=== PATIENT | female | born 1975 | race African-American/Black ===

== ENCOUNTER 2016-11-25 21:31 | Emergency (ER) | payer MEDICARE, OTHER ==
[~2016-11-25] VITALS: Ht 165.1 cm; Wt 190.4 kg
[~2016-11-25 21:31] MED LIST: ALBU0.086 NEB; ALBU1AER INH; AMIT50 PO; ASPI81CH37 CHEW; CETI10 PO; CHOL1CAP6 PO; FERR310S PO; FLUO10CA5 PO; FLUT1INH; FLUT1SPR9; FURO20 PO; HYDR50TA94 PO; IBUP600 PO; KCL20 PO; RANI150T PO; VITA-83 PO
[2016-11-25 21:38] VITALS: BP 150/91; PULSE 113; RESP 20; TEMP 99.9; O2SAT 100
[2016-11-25] MEDS ORDERED: SODIUM CHLORIDE 0.9% FLUSH 5 ML FLUSH IVF PRN (21:45)
[2016-11-25] MEDS ORDERED: FURO20TA PO (21:51)
[2016-11-25] MEDS ORDERED: ALBUAER3 INH (21:51)
[2016-11-25] MEDS ORDERED: AMIT50TA3 PO (21:51)
[2016-11-25] MEDS ORDERED: POTA-163 PO (21:51)
[2016-11-25] MEDS ORDERED: FLUT1INH INH (21:51)
[2016-11-25] MEDS ORDERED: VITA250T3 PO (21:51)
[2016-11-25] MEDS ORDERED: RANI150C PO (21:51)
[2016-11-25] MEDS ORDERED: ALBU0.08 NEB (21:51)
[2016-11-25] MEDS ORDERED: HYDR50TA94 PO (21:51)
[2016-11-25] MEDS ORDERED: BETA0.052 TOPICAL (22:00)
[2016-11-25] MEDS ORDERED: CETI10 PO (22:00)
[2016-11-25] MEDS ORDERED: VITA100064 PO (22:00)
[2016-11-25] MEDS ORDERED: IBUP-232 PO (22:00)
[2016-11-25] MEDS ORDERED: FLUT50SP EACH NARE (22:00)
[2016-11-25] MEDS ORDERED: DESO0.0560 TOPICAL (22:00)
[2016-11-25] MEDS ORDERED: POLY99.0 EACH EYE (22:00)
[2016-11-25] MEDS ORDERED: PATA0.2S EACH EYE (22:00)
[2016-11-25] MEDS ORDERED: KETOC2%T TOPICAL (22:00)
[2016-11-25] MEDS ORDERED: LATA0.002 EACH EYE (22:00)
--- NOTE | 2016-11-25 22:01 | RADRPT ---
EXAM DATE/TIME: 11/25/2016 21:56 [facility] COMPARISON: CHEST SINGLE AP, June 04, 2016, 15:29. INDICATIONS : Shortness of breath. MEDICAL HISTORY : None. SURGICAL HISTORY : None. ENCOUNTER: Initial ACUITY: 1 day PAIN SCORE: 0/10 LOCATION: Bilateral chest FINDINGS: A single view of the chest demonstrates the lungs to be symmetrically aerated without evidence of mas s, infiltrate or effusion. The cardiomediastinal contours are unremarkable. Osseous structures are intact. CONCLUSION: No acute disease. Zeferino Carrasco MD on November 25, 2016 at 22:00 Board Certified Radiologist. This report was verified electronically.
--- NOTE | 2016-11-25 22:05 | PD ---
HPI Chief Complaint: Respiratory Symptoms Time Seen by Provider: 21:32 Travel History International Travel<30 days: No Contact w/Intl Traveler<30days: No Traveled to known affect area: No History of Present Illness HPI Patient is 41 years old. She arrives to the ER complaining of a burning sensation in her chest after she walked into her apartment. She also started shortness of breath at the time. For the last few days she has had chills. Productive cough is reported as well. She experiences burning the sternum on occasion and she attributes it to black and white mold exposure in her apartment. Patient suffers with asthma and sleep apnea. She tried a nebulizer at home which helped minimally. Patient saw her primary care provider for essentially the same complaint 3 days prior and was given a prescription to have blood work performed however was unable to complete the blood work. PFSH Past Medical History Anemia: Yes Asthma: Yes Heart Rhythm Problems: No Cardiac Catheterization: No Cardiovascular Problems: Yes (Chest Pain) High Cholesterol: No Congestive Heart Failure: No Diabetes: No Deep Vein Thrombosis: Yes Respiratory: Yes (sleep ) Sleep Apnea: Yes (CPAP @ NIGHT) : 0 Past Surgical History Coronary Artery Bypass Graft: No Social History Alcohol Use: No Tobacco Use: No Substance Use: No Allergies-Medications (Allergen,Severity, Reaction): Coded Allergies: No Known Allergies (Verified , 11/25/16) Reported Meds & Prescriptions Reported Meds & Active Scripts Active Cetirizine (Cetirizine HCl) 10 Mg Tab 10 Mg PO DAILY Aspirin Low Dose (Aspirin) 81 Mg Chew 81 Mg CHEW DAILY Fluoxetine (Fluoxetine HCl) 10 Mg Cap 10 Mg PO DAILY Reported Pataday Opth Drops (Olopatadine HCl) 0.2 % Drops 1 Drop EACH EYE DAILY Cetirizine (Cetirizine HCl) 10 Mg Tab 10 Mg PO DAILY Fluticasone Nasal [place] 50 Mcg/Act Naspr 50 Mcg EACH NARE DAILY 50 mcg/spray Artificial Tears Opth Drops (Polyvinyl Alcohol) 1.4% Soln 1-2 Drop EACH EYE PRN PRN Nizoral Topical Shampoo (Ketoconazole) 2% Sham 1 Applic TOPICAL DAILY Apply to scalp Ibuprofen 600 Mg Tab 600 Mg PO BID PRN Vitamin D (Cholecalciferol) 1,000 Unit Tab 1,000 Units PO DAILY Latanoprost Opth Drops (Latanoprost) 0.005% Drops 1 Drop EACH EYE HS Refrigerate until opened. Betamethasone Dipropionate Topical 0.05% Cream 1 Applic TOPICAL BID Desonide Topical (Desonide) 0.05% Cream 1 Applic TOPICAL BID Furosemide 20 Mg Tab 20 Mg PO BID Potassium Chloride ER (Potassium Chloride) 20 Meq Tab 20 Meq PO BID Hydroxyzine HCl 50 Mg Tab 50 Mg PO HS Amitriptyline (Amitriptyline HCl) 50 Mg Tab 50 Mg PO HS Ranitidine (Ranitidine HCl) 150 Mg Cap 150 Mg PO BID Breo Ellipta Inh (Fluticasone/Vilanterol) 100-25 Mcg/Act Inh 1 Puff INH DAILY Use daily at the same time. Vitamin C (Ascorbic Acid) 250 Mg Tab 250 Mg PO DAILY Albuterol Neb (Albuterol Sulfate) 2.5 Mg/3 Ml Neb 2.5 Mg NEB TID NEB PRN Proair Hfa 8.5 GM Inh (Albuterol Sulfate) 90 Mcg/Act Aer 2 Puff INH Q6H PRN 108 mcg/actuation Review of Systems Except as stated in HPI: all other systems reviewed are Neg Physical Exam Narrative GENERAL: 41-year-old female pleasant, mild distress SKIN: Warm and dry. HEAD: Atraumatic. Normocephalic. EYES: Pupils equal and round. No scleral icterus. No injection or drainage. ENT: No nasal bleeding or discharge. Mucous membranes pink and moist. NECK: Trachea midline. No JVD. CARDIOVASCULAR: Regular rhythm. Tachycardia. RESPIRATORY: No accessory muscle use. Clear to auscultation. Breath sounds equal bilaterally. GASTROINTESTINAL: Abdomen soft, non-tender, nondistended. Hepatic and splenic margins not palpable. MUSCULOSKELETAL: No obvious deformities. No clubbing. No cyanosis. No edema. NEUROLOGICAL: Awake and alert. No obvious cranial nerve deficits. Motor grossly within normal limits. Normal speech. PSYCHIATRIC: Appropriate mood and affect; insight and judgment normal. Data Data Last Documented VS Vital Signs Date Time Temp Pulse Resp B/P Pulse Ox O2 Delivery O2 Flow Rate FiO2 11/26/16 01:08 103 18 134/76 100 Room Air 11/25/16 21:38 99.9 Vital signs reviewed Orders Electrocardiogram (11/25/16 21:41) Complete Blood Count With Diff (11/25/16 21:41) Chest, Single Ap (11/25/16 21:41) Ecg Monitoring (11/25/16 21:41) Iv Access Insert/Monitor (11/25/16 21:41) Oximetry (11/25/16 21:41) Sodium Chloride 0.9% Flush (Ns Flush) (11/25/16 21:45) Blood Culture (11/25/16 21:41) Labs Laboratory Tests Test 11/26/16 00:25 White Blood Count 6.3 TH/MM3 Red Blood Count 4.32 MIL/MM3 Hemoglobin 11.7 GM/DL Hematocrit 37.4 % Mean Corpuscular Volume 86.6 FL Mean Corpuscular Hemoglobin 27.0 PG Mean Corpuscular Hemoglobin 31.2 % Concent Red Cell Distribution Width 15.6 % Platelet Count 164 TH/MM3 Mean Platelet Volume 9.7 FL Neutrophils (%) (Auto) 62.3 % Lymphocytes (%) (Auto) 30.4 % Monocytes (%) (Auto) 4.9 % Eosinophils (%) (Auto) 1.6 % Basophils (%) (Auto) 0.8 % Neutrophils # (Auto) 3.9 TH/MM3 Lymphocytes # (Auto) 1.9 TH/MM3 Monocytes # (Auto) 0.3 TH/MM3 Eosinophils # (Auto) 0.1 TH/MM3 Basophils # (Auto) 0.1 TH/MM3 CBC Comment DIFF FINAL Differential Comment MDM Medical Decision Making Medical Screen Exam Complete: No Emergency Medical Condition: No Medical Record Reviewed: No Differential Diagnosis NSTEMI, unstable angina, coronary vasospasm, PE, PTX, aortic dissection, pericarditis, myocarditis, endocarditis, PNA, esophageal disease, aneurysm, musculoskeletal etiologies, anxiety, cocaine/sympathomimetic abuse Narrative Course EKG: Sinus rate [address] changes, normal axis/intervals Of note the patient is somewhat tachycardic. Upon review of her vital signs trended over the past 5 years patient tends to run tachycardic quite often with a heart rate over 100. For 3 hours patient has remained here and in no distress with a heart rate that has descended to about 105 on average. Chest x- ray is normal as is the EKG. Patient will be discharged home. Diagnosis Primary Impression: Chest pain, atypical Additional Impressions: Morbid obesity with BMI of 60.0-69.9, adult Dyspnea Qualified Code: R06.00 - Dyspnea, unspecified type Referrals: Primary Care Physician 2 days Additional Instructions: You have a choice when it comes to health care, and we are glad that you chose [facility]. Hopefully, we have met your expectations on today's visit. You are welcome to return to [facility] at any time, as we are committed to meeting the health care needs of our community. Med/Other Pt SpecificInfo: No Change to Meds Disposition: 01 DISCHARGE HOME Condition: Stable Javon Espinoza MD Nov 25, 2016 22:05 Javon Espinoza MD Nov 25, 2016 22:05
[2016-11-26 00:38] LABS: AUTOMATED NEUTROPHIL # 3.9 TH/MM3 (1.8-7.7); BASOPHIL # 0.1 TH/MM3 (0-0.2); BASOPHIL % 0.8 % (0.0-2.0); EOSINOPHIL # 0.1 TH/MM3 (0-0.4); EOSINOPHIL % 1.6 % (0.0-4.0); HEMATOCRIT 37.4 % (35.0-46.0); HEMO FLAGS DIFF FINAL; LYMPH % 30.4 % (9.0-44.0); LYMPHOCYTE # 1.9 TH/MM3 (1.0-4.8); MEAN CELL VOLUME 86.6 FL (80.0-100.0); MEAN CORPUSCULAR HGB CONC 31.2 % (32.0-36.0); MONO % 4.9 % (0.0-8.0); NEUT % 62.3 % (16.0-70.0); PLATELET COUNT 164 TH/MM3 (150-450); RED BLOOD COUNT 4.32 MIL/MM3 (4.00-5.30); RED CELL DISTRIBUTION WIDTH 15.6 % (11.6-17.2); WHITE BLOOD COUNT 6.3 TH/MM3 (4.0-11.0)
[2016-11-26 01:08] VITALS: BP 134/76; PULSE 103; RESP 18; O2SAT 100
--- NOTE | 2016-11-26 17:19 | EKG ---
Date Performed: 11/25/2016 Time Performed: 22:20:32 PTAGE: 41 years EKG: SINUS TACHYCARDIA NONSPECIFIC T-WAVE ABNORMALITY Compared to prior tracing no significant c hange ABNORMAL RHYTHM ECG PREVIOUS TRACING : 06/04/2016 21.42 DOCTOR: Diane Burr Interpretating Date/Time 11/26/2016 17:17:20
[2016-12-25] MEDS ORDERED: [UNRECOGNIZED DRUG - SUPPLY] (12:22)
[2016-12-25] MEDS ORDERED: FLUT1INH INH (22:39)
== END 2016-11-26 01:25 | disposition home or self-care (01) ==
LOC: NEPC 21:31
DX: R07.89 Other chest pain (principal); R06.02 Shortness of breath; R05 Cough; E66.01 Morbid (severe) obesity due to excess calories; Z68.44 Body mass index [BMI] 60.0-69.9, adult
CPT/HCPCS: 71010; 85025; 93005

== ENCOUNTER → 2016-12-20 | Outpatient (CLI) | payer MEDICARE, OTHER ==
[~2016-12-20] MED LIST changes: +ALBU0.08 NEB; -ALBU0.086 NEB; -ALBU1AER INH; +ALBUAER3 INH; -AMIT50 PO; +AMIT50TA3 PO; +BETA0.052 TOPICAL; -CHOL1CAP6 PO; +DESO0.0560 TOPICAL; -FERR310S PO; -FLUT1INH; +FLUT1INH INH; -FLUT1SPR9; +FLUT50SP EACH NARE; -FURO20 PO; +FURO20TA PO; +IBUP-232 PO; -IBUP600 PO; -KCL20 PO; +KETOC2%T TOPICAL; +LATA0.002 EACH EYE; +MEDR4PAK PO; +PATA0.2S EACH EYE; +POLY99.0 EACH EYE; +POTA-163 PO; +RANI150C PO; -RANI150T PO; -VITA-83 PO; +VITA100064 PO; +VITA250T3 PO; +[UNRECOGNIZED DRUG - SUPPLY]
[2016-12-20 11:05] LABS: AUTOMATED NEUTROPHIL # 2.9 TH/MM3 (1.8-7.7); BASOPHIL # 0.1 TH/MM3 (0-0.2); BASOPHIL % 1.1 % (0.0-2.0); EOSINOPHIL # 0.1 TH/MM3 (0-0.4); EOSINOPHIL % 1.4 % (0.0-4.0); HEMATOCRIT 34.6 % (35.0-46.0); HEMO FLAGS DIFF FINAL; LYMPH % 36.5 % (9.0-44.0); LYMPHOCYTE # 1.9 TH/MM3 (1.0-4.8); MEAN CELL VOLUME 80.9 FL (80.0-100.0); MEAN CORPUSCULAR HEMOGLOBIN 26.9 PG (27.0-34.0); MEAN CORPUSCULAR HGB CONC 33.2 % (32.0-36.0); MONO % 6.2 % (0.0-8.0); NEUT % 54.8 % (16.0-70.0); PLATELET COUNT 234 TH/MM3 (150-450); RED BLOOD COUNT 4.28 MIL/MM3 (4.00-5.30); WHITE BLOOD COUNT 5.3 TH/MM3 (4.0-11.0)
[2016-12-20 11:30] LABS: ALT (GPT) 20 U/L (10-53); ANION GAP 8 MEQ/L (5-15); AST (GOT) 13 U/L (15-37); BICARBONATE 27.8 MEQ/L (21.0-32.0); BLOOD UREA NITROGEN 14 MG/DL (7-18); CHLORIDE 103 MEQ/L (98-107); GLOMERULAR FILTRATION RATE 104 ML/MIN (>89); GLUCOSE,FASTING 88 MG/DL (74-99); POTASSIUM 3.8 MEQ/L (3.5-5.1); SODIUM (NA) 139 MEQ/L (136-145)
[2016-12-20 11:31] LABS: ALKALINE PHOSPHATASE 61 U/L (45-117); TOTAL BILIRUBIN ADULT 0.6 MG/DL (0.2-1.0)
== END ==
LOC: CLAB 10:22
PROVIDERS: ATTEND Family Medicine
DX: R06.02 Shortness of breath (principal); Z77.120 Contact with and (suspected) exposure to mold (toxic)
CPT/HCPCS: 36415; 80053; 85025

== ENCOUNTER → 2017-01-08 | Outpatient (CLI) | payer MEDICARE, OTHER | LOC: CLAB 10:18 | DX: R53.83 Other fatigue (principal); R06.02 Shortness of breath; Z77.120 Contact with and (suspected) exposure to mold (toxic) | CPT/HCPCS: 36415; 83880; 84443; 87102; 87206 ==

== ENCOUNTER → 2017-01-17 | Outpatient (CLI) | payer MEDICARE, OTHER ==
--- NOTE | 2017-01-19 12:39 | EC ---
Study Study Date:01/17/2017 STUDY CONCLUSIONS SUMMARY LEFT VENTRICLE: The cavity size was normal. Wall thickness was normal. Systolic function was normal. The estimated ejection fraction was in the range of 55% to 60%. Wall motion was normal; there were no regional wall motion abnormalities. If LV function is below 40, please consider prescribing an ACEI or ARB or document rationale for non-use. PROCEDURE DATA STUDY STATUS: Elective. Procedure: Transthoracic echocardiography. Image quality was suboptimal. Scanning was performed from the parasternal, apical, and subcostal acoustic windows. Study completion: The patient tolerated the procedure well. Transthoracic echocardiography. M-mode, complete 2D, complete spectral Doppler, and color Doppler. Height: Height: 65in. Weight: Weight: 418.1lb. Body mass index: BMI: 69.7kg/m^2. Body surface area: BSA: 2.71m^2. Patient status: Inpatient. CARDIAC ANATOMY LEFT VENTRICLE: The cavity size was normal. Wall thickness was normal. Systolic function was normal. The estimated ejection fraction was in the range of 55% to 60%. Wall motion was normal; there were no regional wall motion abnormalities. AORTIC VALVE: Not well visualized. Normal thickness leaflets. Doppler: Transvalvular velocity was within the normal range. There was no stenosis. No regurgitation. AORTA: Aortic root: The aortic root was normal in size. MITRAL VALVE: Structurally normal valve. Doppler: Transvalvular velocity was within the normal range. There was no evidence for stenosis. No regurgitation. LEFT ATRIUM: The atrium was normal in size. RIGHT VENTRICLE: Poorly visualized. The cavity size was normal. Wall thickness was normal. PULMONIC VALVE: Poorly visualized. Doppler: Transvalvular velocity was within the normal range. There was no evidence for stenosis. Trace regurgitation. TRICUSPID VALVE: Poorly visualized. Doppler: Transvalvular velocity was within the normal range. No regurgitation. PULMONARY ARTERY: The main pulmonary artery was normal-sized. RIGHT ATRIUM: Poorly visualized. The atrium was normal in size. PERICARDIUM: There was no pericardial effusion. Patient weight: 418.1lb _Ejection fraction:_ 65-75% _Fractional shortening:_ 32% up to 5Kg 5-11.5Kg 11.6-22.9Kg 23-45Kg 45-57Kg Aortic Root 7-13 <17 13-22 17-27 17-27 LA diam 6-13 <23 24-38 33-47 37-40 RVID 10-17 7-15 7-15 7-18 8-17 LVIDd 12-22 <32 24-38 33-47 37-40 LVPW 2-4 3-6 5-7 6-8 7-8 IVS 2-4 3-6 5-7 6-8 7-8 BASIC MEASUREMENTS ADULT NORMAL Left ventricle LV internal dimension, ED, chordal level, 46.1 mm 43-52 PLAX LV internal dimension, ES, chordal level, 30 mm 23-38 PLAX Fractional shortening, chordal level, PLAX 35 % >29 LV posterior wall thickness, ED 7.32 mm IVS/LVPW ratio, ED 1.01 <1.3 Ventricular septum Septal thickness, ED 7.38 mm Aortic valve Leaflet separation 19 mm 15-26 Aorta Root diameter, ED 29 mm Left atrium Anterior-posterior dimension 22 mm Anterior-posterior dimension index 0.81 cm/m^2 <2.2 BASIC MEASUREMENTS ADULT NORMAL Aortic valve Leaflet separation 19 mm 15-26 DOPPLER MEASUREMENTS ADULT NORMAL Pulmonic valve Peak velocity, S 56.4 cm/s LEGEND: Mean values are shown as u=mean value. Asterisk (*) whitt values outside specified normal range. Prepared and signed by Rehan Izaguirre [id number]
== END ==
LOC: HECH 11:00
PROVIDERS: ATTEND Obstetrics & Gynecology
DX: R06.02 Shortness of breath (principal)
CPT/HCPCS: 93306

== ENCOUNTER 2017-02-18 07:48 | Emergency (ER) | payer MEDICARE, OTHER ==
[~2017-02-18] VITALS: Ht 165.1 cm; Wt 190.0 kg
[~2017-02-18 07:48] MED LIST changes: -MEDR4PAK PO
[2017-02-18 07:50] VITALS: BP 140/71; PULSE 116; RESP 24; TEMP 98.4; O2SAT 97
--- NOTE | 2017-02-18 08:26 | PD ---
HPI Chief Complaint: Chest Pain Time Seen by Provider: 08:05 Travel History International Travel<30 days: No Contact w/Intl Traveler<30days: No Traveled to known affect area: No History of Present Illness HPI So 41 year-old woman who presents to the emergency department complaining of cough, painful swallowing, chest tightness, and low-grade fever up to 101.8. Symptoms started yesterday. She also had some loose watery diarrhea, 4-5 times the past 24 hours. She complains of chest pain and tightness. She is a history of morbid obesity, menorrhagia and iron deficiency anemia, provoked DVT PE, asthma, and sleep apnea. She had multiple visits to the ED and chest pain Center for atypical chest pain. She had a normal echo in January of this year. She states prior to this she was otherwise feeling well. History Past Medical History Narrative Medical Morbid obesity Menorrhagia, fibroids, history of iron deficiency anemia Obesity History of provoked DVT, PE Asthma Hypothyroidism Sleep apnea LMP: 02/11/17 : 0 Past Surgical History Surgical History: No Previous Surgery Social History Alcohol Use: No Tobacco Use: No Allergies-Medications (Allergen,Severity, Reaction): Coded Allergies: No Known Allergies (Verified , 02/18/17) Reported Meds & Prescriptions Reported Meds & Active Scripts Active Breo Ellipta Inh (Fluticasone/Vilanterol) 100-25 Mcg/Act Inh 1 Puff INH DAILY Use daily at the same time. [dehumidifier] Please use all the time and empty it everyday. Cetirizine (Cetirizine HCl) 10 Mg Tab 10 Mg PO DAILY Aspirin Low Dose (Aspirin) 81 Mg Chew 81 Mg CHEW DAILY Fluoxetine (Fluoxetine HCl) 10 Mg Cap 10 Mg PO DAILY Reported Pataday Opth Drops (Olopatadine HCl) 0.2 % Drops 1 Drop EACH EYE DAILY Cetirizine (Cetirizine HCl) 10 Mg Tab 10 Mg PO DAILY Fluticasone Nasal [place] 50 Mcg/Act Naspr 50 Mcg EACH NARE DAILY 50 mcg/spray Artificial Tears Opth Drops (Polyvinyl Alcohol) 1.4% Soln 1-2 Drop EACH EYE PRN PRN Nizoral Topical Shampoo (Ketoconazole) 2% Sham 1 Applic TOPICAL DAILY Apply to scalp Ibuprofen 600 Mg Tab 600 Mg PO BID PRN Vitamin D (Cholecalciferol) 1,000 Unit Tab 1,000 Units PO DAILY Latanoprost Opth Drops (Latanoprost) 0.005% Drops 1 Drop EACH EYE HS Refrigerate until opened. Betamethasone Dipropionate Topical 0.05% Cream 1 Applic TOPICAL BID Desonide Topical (Desonide) 0.05% Cream 1 Applic TOPICAL BID Furosemide 20 Mg Tab 20 Mg PO BID Potassium Chloride ER (Potassium Chloride) 20 Meq Tab 20 Meq PO BID Hydroxyzine HCl 50 Mg Tab 50 Mg PO HS Amitriptyline (Amitriptyline HCl) 50 Mg Tab 50 Mg PO HS Ranitidine (Ranitidine HCl) 150 Mg Cap 150 Mg PO BID Breo Ellipta Inh (Fluticasone/Vilanterol) 100-25 Mcg/Act Inh 1 Puff INH DAILY Use daily at the same time. Vitamin C (Ascorbic Acid) 250 Mg Tab 250 Mg PO DAILY Albuterol Neb (Albuterol Sulfate) 2.5 Mg/3 Ml Neb 2.5 Mg NEB TID NEB PRN Proair Hfa 8.5 GM Inh (Albuterol Sulfate) 90 Mcg/Act Aer 2 Puff INH Q6H PRN 108 mcg/actuation Review of Systems Except as stated in HPI: all other systems reviewed are Neg Physical Exam Narrative GENERAL: Obese 41 year-old woman, no acute distress. SKIN: Focused skin assessment warm/dry. HEAD: Atraumatic. Normocephalic. EYES: Pupils equal and round. No scleral icterus. No injection or drainage. ENT: No nasal bleeding or discharge. Mucous membranes pink and moist. TMs are normal. Limited view the oral pharynx several see any obvious tonsillar hypertrophy or pharyngeal injection. NECK: Trachea midline. No JVD. No appreciable cervical adenopathy. CARDIOVASCULAR: Heart rates over rapid. No murmurs. RESPIRATORY: No respiratory distress. No wheezing. Lungs are clear to auscultation. GASTROINTESTINAL: Abdomen soft, non-tender, nondistended. Hepatic and splenic margins not palpable. MUSCULOSKELETAL: No obvious deformities. Legs are obese but no appreciable pitting edema. NEUROLOGICAL: Awake and alert. No obvious cranial nerve deficits. Motor grossly within normal limits. Normal speech. Data Data Last Documented VS Vital Signs Date Time Temp Pulse Resp B/P Pulse Ox O2 Delivery O2 Flow Rate FiO2 02/18/17 08:30 98 21 02/18/17 08:02 87 18 Room Air 02/18/17 07:50 98.4 140/71 Orders Electrocardiogram (02/18/17 ) Chest, Single Ap (02/18/17 ) Ketorolac Inj (Toradol Inj) (02/18/17 08:30) Albuterol Neb (Albuterol Neb) (02/18/17 08:30) MDM Medical Decision Making Medical Screen Exam Complete: Yes Emergency Medical Condition: Yes Interpretation(s) My review of EKG: Sinus tachycardia rate of 1:15, normal axis, normal intervals , nonspecific inferolateral T-wave flattening inversions. Compared to previous EKG from November 25, 2016, no significant change. Chest x-ray: No acute cardiopulmonary disease. Differential Diagnosis URI, viral syndrome, pneumothorax, PE, other Narrative Course Medical decision making This a 41-year-old woman who presents to the emergency department complaining of cough, chest tightness, sore throat/difficulty swallowing, diarrhea, all suggestive of URI. She looks otherwise well. I don't hear any wheezing suggest asthma exacerbation. She's a previous workups for chest pain in the past been unremarkable. Recommended supportive treatment. Diagnosis Primary Impression: Chest tightness Additional Impression: Viral syndrome Additional Instructions: Take Naprosyn as needed for sore throat and fevers. Continue albuterol every 4-6 hours until symptoms resolve. Follow-up with your primary doctor in the next 2-4 days if you're not feeling completely well. Return to the emergency department for any new or worsening symptoms. Med/Other Pt SpecificInfo: Prescription(s) given Disposition: 01 DISCHARGE HOME Condition: Stable Chin Vigil MD Feb 18, 2017 08:26
[2017-02-18 08:30] VITALS: O2SAT 98
[2017-02-18] MEDS ORDERED: RESP: ALBUTEROL 2.5 MG/3 ML NEB (SCH) NEB ONE (08:30)
[2017-02-18] MEDS ORDERED: KETOROLAC TROMETHAMINE 60 MG/2 ML (IM) VIAL IM ONE (08:30)
--- NOTE | 2017-02-18 09:15 | RADRPT ---
EXAM DATE/TIME: 02/18/2017 08:25 [facility] COMPARISON: CHEST SINGLE AP, November 25, 2016, 21:56. INDICATIONS : Chest pain. Shortness of breath. Cough. MEDICAL HISTORY : Asthma. SURGICAL HISTORY : None. ENCOUNTER: Initial ACUITY: 2 days PAIN SCORE: 10/10 LOCATION: chest Midline. FINDINGS: The lungs are clear without infiltrate, nodule, or mass. There is no appreciable pleural effusion fo r technique. Heart and mediastinum are unremarkable. CONCLUSION: No acute cardiopulmonary disease. Faye Duong MD on February 18, 2017 at 8:58 Board Certified Radiologist. This report was verified electronically.
--- NOTE | 2017-02-18 14:51 | EKG ---
Date Performed: 02/18/2017 Time Performed: 08:06:04 PTAGE: 41 years EKG: SINUS TACHYCARDIA POSSIBLE LEFT ATRIAL ENLARGEMENT NONSPECIFIC T-WAVE ABNORMALITY ABNORMAL RHYTHM ECG NO SIGNIFICANT CHANGE FROM PRIOR ELECTROCARDIOGRAM. PREVIOUS TRACING : 11/25/2016 22.20 DOCTOR: Rehan Izaguirre Interpretating Date/Time 02/18/2017 14:49:12
== END 2017-02-18 10:38 | disposition home or self-care (01) ==
LOC: NEPC 07:48
DX: R07.89 Other chest pain (principal); B34.9 Viral infection, unspecified; R05 Cough; R50.9 Fever, unspecified; J45.909 Unspecified asthma, uncomplicated; R94.31 Abnormal electrocardiogram [ECG] [EKG]
CPT/HCPCS: 71010; 93005; 94664; 96372; 99285; J1885; J7613

== ENCOUNTER 2017-04-10 22:14 | Emergency (ER) | payer MEDICARE, OTHER ==
[2017-04-10 22:16] VITALS: BP 168/98; PULSE 115; RESP 18; TEMP 100.1; O2SAT 99
--- NOTE | 2017-04-10 22:33 | PD ---
Physical Exam Time Seen by Provider: 22:31 Narrative 41yo F c/o moving out of a house because of mold and her body thinking shes still living in the mold. Reports coughing up mucus, feeling tired, stress, chest pain, SOB, left lower extremity swelling, [place], fever in ER, cold chills. Patient seen in triage. VS reviewed. Awaiting bed placement. Data Data Last Documented VS Vital Signs Date Time Temp Pulse Resp B/P Pulse Ox O2 Delivery O2 Flow Rate FiO2 04/10/17 22:16 100.1 115 18 168/98 99 Room Air MDM Supervised Visit with HIEN: Crystal Gustafson Apr 10, 2017 22:33
[2017-04-10] MEDS ORDERED: SODIUM CHLORIDE 0.9% FLUSH 10 ML FLUSH IVF PRN (22:45)
--- NOTE | 2017-04-10 22:47 | PD ---
HPI Chief Complaint: Chest Pain Time Seen by Provider: 22:42 Travel History International Travel<30 days: No Contact w/Intl Traveler<30days: No Traveled to known affect area: No History of Present Illness HPI This is a 41-year-old female with history of morbid obesity, previous DVT and PEs, who presents with chest pain, chest tightness. Patient also reports left lower extremity redness and edema. The patient denies any fevers, chills. She denies any shortness of breath that is new. She reports that she is in a house with mold and has baseline shortness of breath from this. There is no other complaints time my examination. PFSH Past Medical History Anemia: Yes Asthma: Yes Heart Rhythm Problems: No Cardiac Catheterization: No Cardiovascular Problems: Yes (Chest Pain) High Cholesterol: No Congestive Heart Failure: No Diabetes: No Deep Vein Thrombosis: Yes Respiratory: Yes (sleep apnea cpap at night, blood clot in lungs) Immunizations Current: Yes Sleep Apnea: Yes (CPAP @ NIGHT) ?: Not LMP: 04/09/17 : 0 Past Surgical History Coronary Artery Bypass Graft: No Social History Alcohol Use: No Tobacco Use: No Substance Use: No Allergies-Medications (Allergen,Severity, Reaction): Coded Allergies: No Known Allergies (Verified , 04/10/17) Reported Meds & Prescriptions Reported Meds & Active Scripts Active Breo Ellipta Inh (Fluticasone/Vilanterol) 100-25 Mcg/Act Inh 1 Puff INH DAILY Use daily at the same time. [dehumidifier] Please use all the time and empty it everyday. Cetirizine (Cetirizine HCl) 10 Mg Tab 10 Mg PO DAILY Aspirin Low Dose (Aspirin) 81 Mg Chew 81 Mg CHEW DAILY Reported Pataday Opth 0.2% (Olopatadine HCl) 0.2 % Drops 1 Drop EACH EYE DAILY Cetirizine (Cetirizine HCl) 10 Mg Tab 10 Mg PO DAILY Fluticasone Nasal [place] 50 Mcg/Act Naspr 50 Mcg EACH NARE DAILY 50 mcg/spray Artificial Tears Opth Drops (Polyvinyl Alcohol) 1.4% Soln 1-2 Drop EACH EYE PRN PRN Nizoral Topical Shampoo (Ketoconazole) 2% Sham 1 Applic TOPICAL DAILY Apply to scalp Ibuprofen 600 Mg Tab 600 Mg PO BID PRN Vitamin D (Cholecalciferol) 1,000 Unit Tab 1,000 Units PO DAILY Latanoprost Opth Drops (Latanoprost) 0.005% Drops 1 Drop EACH EYE HS Refrigerate until opened. Betamethasone Dipropionate Topical 0.05% Cream 1 Applic TOPICAL BID Desonide Topical (Desonide) 0.05% Cream 1 Applic TOPICAL BID Furosemide 20 Mg Tab 20 Mg PO BID Potassium Chloride ER (Potassium Chloride) 20 Meq Tab 20 Meq PO BID Hydroxyzine HCl 50 Mg Tab 50 Mg PO HS Amitriptyline (Amitriptyline HCl) 50 Mg Tab 50 Mg PO HS Ranitidine (Ranitidine HCl) 150 Mg Cap 150 Mg PO BID Breo Ellipta Inh (Fluticasone/Vilanterol) 100-25 Mcg/Act Inh 1 Puff INH DAILY Use daily at the same time. Vitamin C (Ascorbic Acid) 250 Mg Tab 250 Mg PO DAILY Albuterol Neb (Albuterol Sulfate) 2.5 Mg/3 Ml Neb 2.5 Mg NEB TID NEB PRN Proair Hfa 8.5 GM Inh (Albuterol Sulfate) 90 Mcg/Act Aer 2 Puff INH Q6H PRN 108 mcg/actuation Review of Systems Except as stated in HPI: all other systems reviewed are Neg General / Constitutional: No: Fever, Chills Eyes: No: Diploplia HENT: No: Headaches, Lightheadedness Cardiovascular: Positive: Chest Pain or Discomfort, No: Palpitations, Irregular Rhythm Respiratory: Positive: Shortness of Breath (chronic), No: Cough Gastrointestinal: No: Nausea, Vomiting, Abdominal Pain Musculoskeletal: Positive: Edema (left lower extremity that is worse), Pain ( left lower extremity) Neurologic: No: Weakness, Dizziness, Focal Abnormalities Physical Exam Narrative GENERAL: Well-nourished, well-developed patient, in no acute respiratory distress. SKIN: Focused skin assessment warm/dry. HEAD: Normocephalic/atraumatic. EYES: No scleral icterus. No injection or drainage. NECK: Supple, trachea midline. No JVD or lymphadenopathy. CARDIOVASCULAR: Regular rate and rhythm without murmurs, gallops, or rubs. RESPIRATORY: Breath sounds equal bilaterally. No accessory muscle use. Patient is morbidly obese and has decreased breath sounds secondary to her habitus. GASTROINTESTINAL: Abdomen soft, obese, non-tender, nondistended. MUSCULOSKELETAL: No cyanosis. The patient has bilateral diffuse lower extremity edema. Her left lower extremity is more swollen than her left with redness near her distal calf. NEUROLOGICAL: Awake and alert. Cranial nerves II through XII intact. Motor grossly within normal limits. Five out of 5 muscle strength in all muscle groups. Normal speech. Data Data Last Documented VS Vital Signs Date Time Temp Pulse Resp B/P Pulse Ox O2 Delivery O2 Flow Rate FiO2 04/10/17 22:16 100.1 115 18 168/98 99 Room Air Orders Complete Blood Count With Diff (04/10/17 22:42) Comprehensive Metabolic Panel (04/10/17 22:42) Ckmb (Isoenzyme) Profile (04/10/17 22:42) Troponin I (04/10/17 22:42) Urinalysis - C+S If Indicated (04/10/17 22:42) Iv Access Insert/Monitor (04/10/17 22:42) Ecg Monitoring (04/10/17 22:42) Oximetry (04/10/17 22:42) Oxygen Administration (04/10/17 22:42) Us Leg Venous Doppler (04/10/17 22:42) Sodium Chloride 0.9% Flush (Ns Flush) (04/10/17 22:45) CKMB (04/10/17 23:25) CKMB% (04/10/17 23:25) Methylprednisolone So Succ Inj (Solumedr (04/11/17 02:15) Labs Laboratory Tests Test 04/10/17 04/11/17 23:25 00:20 Sodium Level 141 MEQ/L Potassium Level 4.0 MEQ/L Chloride Level 104 MEQ/L Carbon Dioxide Level 25.9 MEQ/L Anion Gap 11 MEQ/L Blood Urea Nitrogen 8 MG/DL Creatinine 0.69 MG/DL Estimat Glomerular Filtration 115 ML/MIN Rate Random Glucose 90 MG/DL Calcium Level 8.8 MG/DL Total Bilirubin 0.9 MG/DL Aspartate Amino Transf 25 U/L (AST/SGOT) Alanine Aminotransferase 24 U/L (ALT/SGPT) Alkaline Phosphatase 48 U/L Total Creatine Kinase 214 U/L Creatine Kinase MB 0.5 NG/ML Creatine Kinase MB % 0.2 % Troponin I LESS THAN 0.02 NG/ML Total Protein 7.5 GM/DL Albumin 3.3 GM/DL White Blood Count 6.2 TH/MM3 Red Blood Count 4.21 MIL/MM3 Hemoglobin 10.9 GM/DL Hematocrit 33.5 % Mean Corpuscular Volume 79.6 FL Mean Corpuscular Hemoglobin 25.9 PG Mean Corpuscular Hemoglobin 32.6 % Concent Red Cell Distribution Width 16.6 % Platelet Count 201 TH/MM3 Mean Platelet Volume 9.0 FL Neutrophils (%) (Auto) 75.8 % Lymphocytes (%) (Auto) 18.2 % Monocytes (%) (Auto) 4.9 % Eosinophils (%) (Auto) 0.4 % Basophils (%) (Auto) 0.7 % Neutrophils # (Auto) 4.7 TH/MM3 Lymphocytes # (Auto) 1.1 TH/MM3 Monocytes # (Auto) 0.3 TH/MM3 Eosinophils # (Auto) 0.0 TH/MM3 Basophils # (Auto) 0.0 TH/MM3 CBC Comment DIFF FINAL Differential Comment MDM Medical Decision Making Medical Screen Exam Complete: Yes Emergency Medical Condition: Yes Differential Diagnosis ACS versus C versus atypical noncardiac chest pain versus left lower shimmy DVT. Narrative Course 41-year-old female who presents with complaints of chest pain. The patient has been seen and evaluated multiple times for this and recently had a cardiac workup and a negative stress test. The patient also complains of left lower shimmy edema. She reports that she's recently moved and has been on her left lower extremity more than she normally has which is resulted in the swelling. There is no evidence of drainage. There is no evidence of cellulitis. Ultrasound shows no evidence of DVT. Cart at enzymes are within normal limits and EKG shows no evidence of acute process. The patient will be discharged. She will be given a Medrol Dosepak. She's been given 125 mg of Solu-Medrol IM here in the emergency department. She is instructed to follow up with her primary care physician. Diagnosis Primary Impression: Chest pain, atypical Additional Impressions: Iron deficiency anemia Lymphedema Non-allergic asthma Additional Instructions: Elevate lower extremities. Return if feeling worse. Disposition: 01 DISCHARGE HOME Condition: Stable Junior Simons MD Apr 10, 2017 22:47 Junior Simons MD Apr 10, 2017 22:47
[2017-04-11 00:02] LABS: ALKALINE PHOSPHATASE 48 U/L (45-117); ALT (GPT) 24 U/L (10-53); ANION GAP 11 MEQ/L (5-15); AST (GOT) 25 U/L (15-37); BICARBONATE 25.9 MEQ/L (21.0-32.0); BLOOD UREA NITROGEN 8 MG/DL (7-18); CHLORIDE 104 MEQ/L (98-107); CREATINE KINASE 214 U/L (26-192); GLOMERULAR FILTRATION RATE 115 ML/MIN (>89); SODIUM (NA) 141 MEQ/L (136-145); TOTAL BILIRUBIN ADULT 0.9 MG/DL (0.2-1.0)
[2017-04-11 00:19] LABS: CKMB 0.5 NG/ML (0.5-3.6)
--- NOTE | 2017-04-11 00:21 | RADRPT ---
EXAM DATE/TIME: 04/10/2017 23:26 [facility] COMPARISON: No previous studies available for comparison. INDICATIONS : Left leg pain and swelling. MEDICAL HISTORY : Deep venous thrombosis. Sleep apnea. Asthma. Pulmonary embolism. SURGICAL HISTORY : None. ENCOUNTER: Initial ACUITY: 1 day PAIN SCORE: 4/10 LOCATION: Left leg. TECHNIQUE: Venous ultrasound of the leg was performed from the inguinal ligament to the proximal calf. Real-makenzie e, color Doppler and spectral tracing, compression and augmentation techniques were used. FINDINGS: There is normal compressibility of the deep venous system from the inguinal region to the proximal ca lf. No echogenic clot is seen in the lumen of the common femoral, femoral, popliteal, and posterior tibial veins. There is a normal response of the venous system to proximal and distal augmentation an d respiration. CONCLUSION: Normal examination. Chin García MD on April 11, 2017 at 0:19 Board Certified Radiologist. This report was verified electronically.
[2017-04-11 00:33] LABS: AUTOMATED NEUTROPHIL # 4.7 TH/MM3 (1.8-7.7); BASOPHIL % 0.7 % (0.0-2.0); EOSINOPHIL % 0.4 % (0.0-4.0); HEMATOCRIT 33.5 % (35.0-46.0); HEMO FLAGS DIFF FINAL; LYMPH % 18.2 % (9.0-44.0); LYMPHOCYTE # 1.1 TH/MM3 (1.0-4.8); MEAN CELL VOLUME 79.6 FL (80.0-100.0); MEAN CORPUSCULAR HEMOGLOBIN 25.9 PG (27.0-34.0); MEAN CORPUSCULAR HGB CONC 32.6 % (32.0-36.0); MONO % 4.9 % (0.0-8.0); NEUT % 75.8 % (16.0-70.0); PLATELET COUNT 201 TH/MM3 (150-450); RED BLOOD COUNT 4.21 MIL/MM3 (4.00-5.30); RED CELL DISTRIBUTION WIDTH 16.6 % (11.6-17.2); WHITE BLOOD COUNT 6.2 TH/MM3 (4.0-11.0)
[2017-04-11] MEDS ORDERED: MEDR4PAK PO (02:11)
[2017-04-11] MEDS ORDERED: methylPREDNISolone SOD SUCC 125 MG/2 ML VIAL IM ONE (02:15)
[2017-04-11 03:16] VITALS: BP 160/78; PULSE 87; RESP 18; TEMP 98.1; O2SAT 98
== END 2017-04-11 03:40 | disposition home or self-care (01) ==
LOC: NEPE 22:14
DX: R07.89 Other chest pain (principal); D50.9 Iron deficiency anemia, unspecified; I89.0 Lymphedema, not elsewhere classified; J45.909 Unspecified asthma, uncomplicated; G47.30 Sleep apnea, unspecified; Z86.711 Personal history of pulmonary embolism; Z86.718 Personal history of other venous thrombosis and embolism
CPT/HCPCS: 36600; 80053; 82550; 82552; 84484; 85025; 93971; 96372; 99284; J2930

== ENCOUNTER 2017-12-13 14:24 | Emergency (ER) | payer MEDICARE, OTHER ==
[~2017-12-13] VITALS: Ht 167.6 cm; Wt 136.0 kg
[~2017-12-13 14:24] MED LIST changes: -ASPI81CH37 CHEW; +ASPI81CH6 CHEW; -BETA0.052 TOPICAL; -CETI10 PO; -FLUO10CA5 PO; -POLY99.0 EACH EYE
[2017-12-13 14:26] VITALS: BP 159/83; PULSE 92; RESP 20; TEMP 98.4; O2SAT 96
[2017-12-13 15:56] LABS: AUTOMATED NEUTROPHIL # 3.5 TH/MM3 (1.8-7.7); BASOPHIL % 0.8 % (0.0-2.0); EOSINOPHIL % 0.7 % (0.0-4.0); HEMATOCRIT 36.3 % (35.0-46.0); HEMOGLOBIN 11.8 GM/DL (11.6-15.3); LYMPH % 32.3 % (9.0-44.0); LYMPHOCYTE # 1.8 TH/MM3 (1.0-4.8); MEAN CORPUSCULAR HGB CONC 32.5 % (32.0-36.0); MEAN PLATELET VOLUME 8.7 FL (7.0-11.0); MONOCYTE # 0.2 TH/MM3 (0-0.9); NEUT % 63.2 % (16.0-70.0); PLATELET COUNT 229 TH/MM3 (150-450); RED BLOOD COUNT 4.37 MIL/MM3 (4.00-5.30); RED CELL DISTRIBUTION WIDTH 16.5 % (11.6-17.2); WHITE BLOOD COUNT 5.5 TH/MM3 (4.0-11.0)
[2017-12-13 16:07] LABS: ALBUMIN 3.5 GM/DL (3.4-5.0); ALT (GPT) 27 U/L (10-53); AST (GOT) 17 U/L (15-37); BICARBONATE 27.7 MEQ/L (21.0-32.0); BLOOD UREA NITROGEN 8 MG/DL (7-18); CALCIUM 8.9 MG/DL (8.5-10.1); CHLORIDE 107 MEQ/L (98-107); CREATININE 0.57 MG/DL (0.50-1.00); GLOMERULAR FILTRATION RATE 142 ML/MIN (>89); GLUCOSE,RANDOM 79 MG/DL (74-106); SODIUM (NA) 141 MEQ/L (136-145)
[2017-12-13 16:08] LABS: BACTERIA, URINE MANY /hpf; BILIRUBIN, URINE NEG (NEG); BLOOD, URINE MOD (NEG); GLUCOSE,URINE NEG (NEG); KETONE, URINE NEG (NEG); MUCUS URINE MOD /lpf (OCC); NITRITE,URINE POS (NEG); SQUAMOUS EPITHELIAL CELL URINE 2 /hpf (0-5); URINE LEUKOCYTE ESTERASE SMALL (NEG)
[2017-12-13 16:10] LABS: ALKALINE PHOSPHATASE 61 U/L (45-117); TOTAL BILIRUBIN ADULT 0.6 MG/DL (0.2-1.0); TOTAL PROTEIN 7.9 GM/DL (6.4-8.2)
[2017-12-13 16:11] LABS: URINE COLOR DARK-YELLOW (YELLW/STRAW)
[2017-12-13] MEDS ORDERED: MACR100C2 PO (18:01)
--- NOTE | 2017-12-13 18:01 | PD ---
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 Patient reports that her menstrual periods started yesterday and today she was passing large clots. She has been worked up for this in the past and has received iron transfusions. She is not on any antiplatelets or anticoagulants. She has mild suprapubic cramping. PFSH Past Medical History Anemia: Yes Asthma: Yes Heart Rhythm Problems: No Cardiac Catheterization: No Cardiovascular Problems: Yes (Chest Pain) High Cholesterol: No Congestive Heart Failure: No Diabetes: No Deep Vein Thrombosis: Yes Respiratory: Yes (sleep apnea cpap at night, blood clot in lungs) Immunizations Current: Yes Sleep Apnea: Yes (CPAP @ NIGHT) ?: Not : 0 Past Surgical History Coronary Artery Bypass Graft: No Social History Alcohol Use: No Tobacco Use: No Substance Use: No Allergies-Medications (Allergen,Severity, Reaction): Coded Allergies: No Known Allergies (Verified Adverse Reaction, Unknown, 12/13/17) Reported Meds & Prescriptions Reported Meds & Active Scripts Active Ibuprofen 600 Mg Tab 800 Mg PO BID PRN Breo Ellipta Inh (Fluticasone/Vilanterol) 100-25 Mcg/Act Inh 1 Puff INH DAILY Use daily at the same time. [dehumidifier] Please use all the time and empty it everyday. Aspirin Low Dose (Aspirin) 81 Mg Chew 81 Mg CHEW DAILY Reported Pataday Opth 0.2% (Olopatadine HCl) 0.2 % Drops 1 Drop EACH EYE DAILY Fluticasone Nasal [place] 50 Mcg/Act Naspr 50 Mcg EACH NARE DAILY 50 mcg/spray Nizoral Topical Shampoo (Ketoconazole) 2% Sham 1 Applic TOPICAL DAILY Apply to scalp Vitamin D3 (Cholecalciferol) 1,000 Unit Tab 1,000 Units PO DAILY Latanoprost Opth Drops (Latanoprost) 0.005% Drops 1 Drop EACH EYE HS Refrigerate until opened. Desonide Topical (Desonide) 0.05% Cream 1 Applic TOPICAL BID Furosemide 20 Mg Tab 20 Mg PO BID Potassium Chloride ER (Potassium Chloride) 20 Meq Tab 20 Meq PO BID Hydroxyzine HCl 50 Mg Tab 50 Mg PO HS Amitriptyline (Amitriptyline HCl) 50 Mg Tab 50 Mg PO HS Ranitidine (Ranitidine HCl) 150 Mg Cap 150 Mg PO BID Vitamin C (Ascorbic Acid) 250 Mg Tab 250 Mg PO DAILY Albuterol Neb (Albuterol Sulfate) 2.5 Mg/3 Ml Neb 2.5 Mg NEB TID NEB PRN Proair Hfa 8.5 GM Inh (Albuterol Sulfate) 90 Mcg/Act Aer 2 Puff INH Q6H PRN 108 mcg/actuation Review of Systems Except as stated in HPI: all other systems reviewed are Neg Physical Exam Narrative GENERAL: Well-developed, well-nourished, overweight, comfortable, no apparent distress. SKIN: Focused skin assessment warm/dry. No pallor. HEAD: Atraumatic. Normocephalic. EYES: Pupils equal and round. No scleral icterus. No injection or drainage. No conjunctival pallor. ENT: Mucous membranes pink and moist. CARDIOVASCULAR: Regular rate and rhythm. No murmur appreciated. RESPIRATORY: No accessory muscle use. Clear to auscultation. Breath sounds equal bilaterally. GASTROINTESTINAL: Abdomen soft, non-tender, nondistended. MUSCULOSKELETAL: No obvious deformities. No clubbing. No cyanosis. No edema. NEUROLOGICAL: Awake and alert. No obvious cranial nerve deficits. Motor grossly within normal limits. Normal speech. PSYCHIATRIC: Appropriate mood and affect; insight and judgment normal. Data Data Last Documented VS Vital Signs Date Time Temp Pulse Resp B/P (MAP) Pulse Ox O2 Delivery O2 Flow Rate FiO2 12/13/17 14:26 98.4 92 20 159/83 (108) 96 Orders Orders Complete Blood Count With Diff (12/13/17 15:05) Comprehensive Metabolic Panel (12/13/17 15:05) Urinalysis - C+S If Indicated (12/13/17 15:05) Ed Urine Pregnancytest Poc (12/13/17 15:09) Urine Culture (12/13/17 15:20) Labs Laboratory Tests Test 12/13/17 15:10 12/13/17 15:20 White Blood Count 5.5 TH/MM3 Red Blood Count 4.37 MIL/MM3 Hemoglobin 11.8 GM/DL Hematocrit 36.3 % Mean Corpuscular Volume 83.0 FL Mean Corpuscular Hemoglobin 27.0 PG Mean Corpuscular Hemoglobin Concent 32.5 % Red Cell Distribution Width 16.5 % Platelet Count 229 TH/MM3 Mean Platelet Volume 8.7 FL Neutrophils (%) (Auto) 63.2 % Lymphocytes (%) (Auto) 32.3 % Monocytes (%) (Auto) 3.0 % Eosinophils (%) (Auto) 0.7 % Basophils (%) (Auto) 0.8 % Neutrophils # (Auto) 3.5 TH/MM3 Lymphocytes # (Auto) 1.8 TH/MM3 Monocytes # (Auto) 0.2 TH/MM3 Eosinophils # (Auto) 0.0 TH/MM3 Basophils # (Auto) 0.0 TH/MM3 CBC Comment DIFF FINAL Differential Comment Blood Urea Nitrogen 8 MG/DL Creatinine 0.57 MG/DL Random Glucose 79 MG/DL Total Protein 7.9 GM/DL Albumin 3.5 GM/DL Calcium Level 8.9 MG/DL Alkaline Phosphatase 61 U/L Aspartate Amino Transf (AST/SGOT) 17 U/L Alanine Aminotransferase (ALT/SGPT) 27 U/L Total Bilirubin 0.6 MG/DL Sodium Level 141 MEQ/L Potassium Level 3.7 MEQ/L Chloride Level 107 MEQ/L Carbon Dioxide Level 27.7 MEQ/L Anion Gap 6 MEQ/L Estimat Glomerular Filtration Rate 142 ML/MIN Urine Color DARK-YELLOW Urine Turbidity HAZY Urine pH 6.0 Urine Specific [place] 1.025 Urine Protein 30 mg/dL Urine Glucose (UA) NEG mg/dL Urine Ketones NEG mg/dL Urine Occult Blood MOD Urine Nitrite POS Urine Bilirubin NEG Urine Urobilinogen LESS THAN 2.0 MG/DL Urine Leukocyte Esterase SMALL Urine RBC /hpf Urine WBC 8 /hpf Urine Squamous Epithelial Cells 2 /hpf Urine Bacteria MANY /hpf Urine Mucus MOD /lpf Microscopic Urinalysis Comment CULTURE INDICATED MDM Medical Decision Making Medical Screen Exam Complete: Yes Emergency Medical Condition: Yes Medical Record Reviewed: Yes Differential Diagnosis Menorrhagia, anemia, UTI, , ectopic , coagulopathy Narrative Course Vital signs reviewed and are within normal limits. CBC and CMP are unremarkable. UA shows hematuria, many bacteria, nitrites, leukocyte esterase. Patient be started on Macrobid. The patient's abdominal exam is benign. She is overall very well-appearing. She has history of menorrhagia and has required iron transfusions in the past. Today her hemoglobin is 11.8. She is stable for discharge home with outpatient follow-up with her primary care physician this week. She was advised on when to return to the emergency department. She verbalizes understanding and agreement with plan. Diagnosis Primary Impression: Menorrhagia Qualified Codes: N92.0 - Excessive and frequent menstruation with regular cycle Additional Impression: UTI (urinary tract infection) Qualified Codes: N39.0 - Urinary tract infection, site not specified; R31.9 - Hematuria, unspecified Referrals: Primary Care Physician 3 days Additional Instructions: Follow-up with your primary care physician this week. Return to the emergency department for worsening symptoms or new concerns. Scripts Nitrofurantoin Monohydrate Macrocrystals (Macrobid) 100 Mg Cap 100 MG PO BID for Infection for 7 Days, #14 CAP 0 Refills Prov: Filippo Underwood MD 12/13/17 Disposition: 01 DISCHARGE HOME Condition: Stable Filippo Underwood MD Dec 13, 2017 18:01
== END 2017-12-13 18:14 | disposition home or self-care (01) ==
LOC: NEPD 14:24
DX: N92.0 Excessive and frequent menstruation with regular cycle (principal); N39.0 Urinary tract infection, site not specified; B96.20 Unspecified Escherichia coli [E. coli] as the cause of diseases classified elsewhere; R31.9 Hematuria, unspecified; J45.909 Unspecified asthma, uncomplicated; G47.30 Sleep apnea, unspecified; Z86.718 Personal history of other venous thrombosis and embolism; Z86.711 Personal history of pulmonary embolism
CPT/HCPCS: 80053; 81001; 84703; 85025; 87077; 87086; 87186; 99283